=== PATIENT | male | born 1965 | race Caucasian/White ===

== ENCOUNTER 2016-07-28 13:24 | Inpatient (IN) | payer OTHER ==
[2016-07-28 15:36] VITALS: BMI 31.3
--- NOTE | 2016-07-28 15:59 | HP ---
COWS - Scale Resting Pulse: 1= [place] 81-100 Sweatin=Flushed/Facial Moisture Restless Observation: 1= Difficult to Sit Still Pupil Size: 1= Pupils >than Normal Bone or Joint Aches: 2= Severe Diffuse Aches Runny Nose/ Eye Tearin= Runny Nose/Eyes GI Upset > 30mins: 2= Nausea/Diarrhea Tremor Observation: 2= Slight Tremor Visible Yawning Observation: 1= 1-2x During Session Anxiety or Irritability: 1=Feels Anxious/Irritable Goose Flesh Skin: 3=Piloerection COWS Score: 18 Admission ROS S - HPI Chief Complaint: "Need detox from heroine" Allergies/Adverse Reactions: Allergies Allergy/AdvReac Type Severity Reaction Status Date / Time No Known Allergies Allergy Verified 07/28/16 15:34 History of Present Illness: 51 y/o male with 20yrs of heroine use presents for detox. He reports never been in detox or sober. Exam Limitations: No Limitations - Ebola screening Have you traveled outside of the country in the last 21 days: No Have you had contact with anyone from an Ebola affected area: No Have you been sick,other than usual withdrawal symptoms: No Do you have a fever: No - Review of Systems Constitutional: Chills EENT: reports: Nose Congestion Respiratory: reports: Cough (occasional smoker's cough) Cardiac: reports: No Symptoms Reported GI: reports: Abdominal cramping : reports: No Symptoms Reported Musculoskeletal: reports: Back Pain, Muscle Pain Integumentary: reports: No Symptoms Reported Neuro: reports: No Symptoms reported Endocrine: reports: No Symptoms Reported Hematology: reports: No Symptoms Reported Psychiatric: reports: No Sypmtoms Reported Other Systems: Reviewed and Negative Patient History - Patient Medical History Hx Asthma: No Hx Chronic Obstructive Pulmonary Disease (COPD): No Hx Cancer: No Hx Cardiac Disorders: No Hx Congestive Heart Failure: No Hx Hypertension: Yes Hx Hypercholesterolemia: Yes Hx Pacemaker: No HX Cerebrovascular Accident: Yes (10 yrs ago) Hx Seizures: No Hx Dementia: No Hx Diabetes: Yes Hx Gastrointestinal Disorders: No Hx Liver Disease: No Hx Genitourinary Disorders: No Hx Sexually Transmitted Disorders: No Hx Renal Disease (ESRD): No Hx Thyroid Disease: No Hx Human Immunodeficiency Virus (HIV): No Hx Hepatitis C: No Hx Depression: No Hx Suicide Attempt: No Hx Bipolar Disorder: No Hx Schizophrenia: No Other Medical History: Anxiety - Patient Surgical History Past Surgical History: Yes Hx Neurologic Surgery: No Hx Cataract Extraction: No Hx Cardiac Surgery: No Hx Lung Surgery: No Hx Breast Surgery: No Hx Breast Biopsy: No Hx Abdominal Surgery: No Hx Appendectomy: No Hx Cholecystectomy: No Hx Genitourinary Surgery: No Hx Section: No Hx Orthopedic Surgery: No Other Surgical History: By pass Anesthesia Reaction: No - PPD History Previous Implant?: Yes Documented Results: Negative w/o proof Implanted On Prior R Admission?: No PPD to be Administered?: Yes - Smoking Cessation Smoking history: Current every day smoker Have you smoked in the past 12 months: Yes Aproximately how many cigarettes per day: 40 Hx Chewing Tobacco Use: No Initiated information on smoking cessation: Yes 'Breaking Loose' booklet given: 07/28/16 - Substances Abused Heroin Route: Inhalation Frequency: Daily Amount used: 30 bags Age of first use: 31 Date of Last Use: 07/28/16 Family Disease History - Family Disease History Family Disease History: Diabetes: Mother, Heart Disease: Father Admission Physical Exam [facility] - Vital Signs Vital Signs: Vital Signs - 24 hr 07/28/16 14:02 Temperature 97.5 F L Pulse Rate 97 H Respiratory 20 Rate Blood Pressure 164/86 - Physical General Appearance: Yes: No Apparent Distress HEENTM: Yes: EOMI, Normal ENT Inspection, Normocephalic, Normal Voice Respiratory: Yes: Chest Non-Tender, Lungs Clear, No Respiratory Distress, No Accessory Muscle Use Neck: Yes: No masses,lesions,Nodules, Supple Breast: Yes: Breast Exam Deferred Cardiology: Yes: Regular Rhythm, Regular Rate, S1, S2 Abdominal: Yes: Normal Bowel Sounds, Non Tender, Soft, Surgical Scar Genitourinary: Yes: Within Normal Limits Back: Yes: Normal Inspection Musculoskeletal: Yes: full range of Motion, Gait Steady, Pelvis Stable Extremities: Yes: Normal Inspection, Non-Tender, Tremors Neurological: Yes: registered nurse maternal child II-XII NML intact, Fully Oriented, Alert, Normal Mood/ Affect, Normal Response Integumentary: Yes: Normal Color, Clammy Lymphatic: Yes: Within Normal Limits - Diagnostic (1) Opioid dependence with withdrawal Current Visit: Yes Status: Acute (2) Nicotine dependence Current Visit: Yes Status: Acute Qualifiers: Nicotine product type: cigarettes Substance use status: uncomplicated Qualified Code(s): F17.210 - Nicotine dependence, cigarettes, uncomplicated (3) Hypertension Current Visit: Yes Status: Acute Qualifiers: Hypertension type: essential hypertension Qualified Code(s): I10 - Essential (primary) hypertension (4) Diabetes mellitus Current Visit: Yes Status: Acute Qualifiers: Diabetes mellitus type: type 2 Diabetes mellitus complication detail: with unspecified neuropathy Diabetes mellitus alf insulin use: with alf use (5) Peripheral vascular disease Current Visit: Yes Status: Chronic Cleared for Admission [facility] - Detox or Rehab [facility] Level of Care: Medically Managed Detox Regimen/Protocol: Methadone [facility] Breath Alcohol Content Breath Alcohol Content: 0 Urine Drug Screen - Results Drug Screen Negative: No Urine Drug Screen Results: OPI-Opiates, TCA-Tricyclic Antidepress, OXY-Oxycodone
[2016-07-28] MEDS ORDERED: guaiFENesin/D-METHORPHAN HB 10 ML UNIT-DOSE CUPS PO PRN (16:10)
[2016-07-28] MEDS ORDERED: hydrOXYzine PAMOATE 50 MG CAPSULE (FP) PO PRN (16:10)
[2016-07-28] MEDS ORDERED: IBUPROFEN 400 MG TABLET (FP) PO PRN (16:10)
[2016-07-28] MEDS ORDERED: MAG HYDROX/AL HYDROX/SIMETH 30 ML UNIT-DOSE CUP PO PRN (16:10)
[2016-07-28] MEDS ORDERED: METHADONE HCL 10 MG TABLET (FOR DETOX USE ONLY) PO ONE ×2 (16:10→23:00)
[2016-07-28] MEDS ORDERED: MAGNESIUM CITRATE 300 ML BOTTLE PO PRN (16:10)
[2016-07-28] MEDS ORDERED: ACETAMINOPHEN 325 MG TABLET (FP) PO PRN (16:10)
[2016-07-28] MEDS ORDERED: NICOTINE POLACRILEX 2 MG GUM BC PRN (16:10)
[2016-07-28] MEDS ORDERED: P-EPHED 60MG/TRIPROLIDI 2.5MG TABLET PO PRN (16:10)
[2016-07-28] MEDS ORDERED: MENTHOL/PHENOL 1 EACH UD MM PRN (16:10)
[2016-07-28] MEDS ORDERED: MAGNESIUM HYDROX 2400MG/30ML ORAL SUSPENSION 30 ML CUP PO PRN (16:10)
[2016-07-28] MEDS ORDERED: LOPERAMIDE HCL 2 MG CAPSULE PO PRN (16:10)
[2016-07-28] MEDS: diazePAM 5 MG TABLET PO PRN (18:11)
[2016-07-28] MEDS: ASPIRIN 81 MG CHEWABLE TABLETS PO SCH (18:11)
[2016-07-28] MEDS: metFORMIN HCL 500 MG TABLET (FP) PO SCH (18:11)
[2016-07-28] MEDS ORDERED: INSULIN (NOVOLOG) ASPART 100 UNITS/ML 10ML VIAL ONE ×2 (18:12→21:43)
[2016-07-28] MEDS: NICOTINE 21 MG/24 HOURS TOPICAL PATCH TD SCH (18:15)
[2016-07-28] MEDS: INSULIN SLIDING SCALE (NOVOLOG) 1 VIAL SQ SCH ×2 (18:16→22:18)
[2016-07-28] MEDS ORDERED: PREGABALIN 25 MG CAPSULE PO SCH (22:00)
[2016-07-28] MEDS: GABAPENTIN 300 MG CAPSULE (FP) PO SCH (22:18)
[2016-07-28] MEDS: THIAMINE HCL 100 MG TABLET (FP) PO SCH (22:19)
[2016-07-28] MEDS: INSULIN DETEMIR 100 UNITS/ML MDV SQ SCH (22:19)
[2016-07-28] MEDS: diphenhydrAMINE HCL 50 MG CAPSULE PO PRN (22:19)
[2016-07-29] MEDS: GABAPENTIN 300 MG CAPSULE (FP) PO SCH ×3 (05:43→22:13)
[2016-07-29] MEDS: diazePAM 5 MG TABLET PO PRN ×2 (05:43→10:26)
[2016-07-29] MEDS: metFORMIN HCL 500 MG TABLET (FP) PO SCH ×2 (07:16→16:30)
[2016-07-29] MEDS ORDERED: INSULIN (NOVOLOG) ASPART 100 UNITS/ML 10ML VIAL ONE ×4 (07:26→21:07)
[2016-07-29] MEDS: INSULIN SLIDING SCALE (NOVOLOG) 1 VIAL SQ SCH ×4 (07:29→22:16)
[2016-07-29 09:58] LABS: MCH 31.6 pg (25.7-33.7); MCHC 33.5 g/dl (32.0-35.9); MEAN CELL VOLUME 94.2 fl (80-96); MEAN PLT VOLUME 8.4 fl (7.5-11.1); PLATELET COUNT 301 K/MM3 (134-434); RDW 13.1 % (11.9-15.9); WHITE BLOOD COUNT 10.1 K/mm3 (4.0-10.0)
[2016-07-29] MEDS ORDERED: METHADONE HCL 10 MG TABLET (FOR DETOX USE ONLY) PO ONE (10:00)
[2016-07-29 10:13] LABS: ALK PHOS 113 U/L (45-117); ANION GAP 9 (8-16); BILIRUBIN,TOTAL 0.6 mg/dL (0.2-1.0); CALCIUM 8.7 mg/dL (8.5-10.1); CO2 28 mmol/L (21-32); COCKROFT - GAULT 157.13; CREATININE 0.7 mg/dL (0.7-1.3); GLUCOSE,RANDOM 148 mg/dL (74-106); SGOT/AST 10 U/L (15-37); SGPT/ALT 19 U/L (12-78); TOT PROT 6.5 g/dl (6.4-8.2)
[2016-07-29] MEDS: ASPIRIN 81 MG CHEWABLE TABLETS PO SCH (10:26)
[2016-07-29] MEDS: PRENATAL VITAMINS W/ FOLIC ACID TABLET (FP) PO SCH (10:26)
[2016-07-29] MEDS: LISINOPRIL 20 MG TABLET (FP) PO SCH (10:26)
[2016-07-29] MEDS: NICOTINE 21 MG/24 HOURS TOPICAL PATCH TD SCH (10:27)
--- NOTE | 2016-07-29 15:10 | PN ---
BHS COWS - Scale Resting Pulse: 1= [place] 81-100 Sweatin= Chills/Flushing Restless Observation: 3= Extraneous Movement Pupil Size: 0= Normal to Room Light Bone or Joint Aches: 2= Severe Diffuse Aches Runny Nose/ Eye Tearin= Nasal Congestion GI Upset > 30mins: 2= Nausea/Diarrhea Tremor Observation of Outstretched Hands: 2= Slight Tremor Visible Yawning Observation: 1= 1-2x During Session Anxiety or Irritability: 2=Irritable/Anxious Goose Flesh Skin: 0=Smooth Skin COWS Score: 15 BHS Progress Note (SOAP) Subjective: Anxious, sweating, nausea, tremor, interrupted sleep Objective: 07/29/16 15:08 Last Vital Signs Temp Pulse Resp BP Pulse Ox 98 F 95 H 20 148/88 07/29/16 13:37 07/29/16 13:37 07/29/16 13:37 07/29/16 13:37 Laboratory Tests 07/28/16 07/29/16 07/29/16 18:09 05:41 08:00 WBC 10.1 H RBC 3.94 L Hgb 12.4 Hct 37.1 MCV 94.2 MCHC 33.5 RDW 13.1 Plt Count 301 MPV 8.4 Sodium Potassium Chloride Carbon Dioxide Anion Gap BUN Creatinine Creat Clearance w eGFR POC Glucometer 243 172 Random Glucose Calcium Total Bilirubin AST ALT Alkaline Phosphatase Total Protein Albumin RPR Titer 07/29/16 07/29/16 07/29/16 08:00 08:00 11:01 WBC RBC Hgb Hct MCV MCHC RDW Plt Count MPV Sodium 139 Potassium 4.1 Chloride 102 Carbon Dioxide 28 Anion Gap 9 BUN 12 Creatinine 0.7 Creat Clearance w eGFR > 60 POC Glucometer 181 Random Glucose 148 H Calcium 8.7 Total Bilirubin 0.6 AST 10 L ALT 19 Alkaline Phosphatase 113 Total Protein 6.5 Albumin 3.0 L RPR Titer Nonreactive Labs noted: FS 181, serum glucose 148 Assessment: 07/29/16 15:09 Withdrawal symptoms Noted with hyperglycemia Plan: Continue detox Hyperglycemia secondary to DMT2: continue present regimen, encouraged diabetic diet, continue to monitor
[2016-07-29 18:17] LABS: URINE APPEARANCE CLEAR; URINE BILIRUBIN NEGATIVE (NEGATIVE); URINE BLOOD NEGATIVE (NEGATIVE); URINE COLOR YELLOW; URINE GLUCOSE (UA) 3+ (NEGATIVE); URINE KETONE TRACE (NEGATIVE); URINE LEUK ESTERASE NEGATIVE (NEGATIVE); URINE NITRITE NEGATIVE (NEGATIVE); URINE PROTEIN NEGATIVE (NEGATIVE); URINE UROBILINOGEN NEGATIVE E.U./dl (0.2-1.0)
[2016-07-29] MEDS: THIAMINE HCL 100 MG TABLET (FP) PO SCH (22:13)
[2016-07-29] MEDS: INSULIN DETEMIR 100 UNITS/ML MDV SQ SCH (22:16)
[2016-07-30] MEDS: diazePAM 5 MG TABLET PO PRN ×4 (05:42→22:21)
[2016-07-30] MEDS: GABAPENTIN 300 MG CAPSULE (FP) PO SCH ×3 (05:43→22:19)
[2016-07-30] MEDS: metFORMIN HCL 500 MG TABLET (FP) PO SCH ×2 (06:24→16:48)
[2016-07-30] MEDS ORDERED: INSULIN (NOVOLOG) ASPART 100 UNITS/ML 10ML VIAL ONE ×3 (06:43→21:47)
[2016-07-30] MEDS: INSULIN SLIDING SCALE (NOVOLOG) 1 VIAL SQ SCH ×4 (06:44→22:19)
--- NOTE | 2016-07-30 09:10 | EKG ---
Test Reason : Blood Pressure : / mmHG Vent. Rate : 101 BPM Atrial Rate : 101 BPM P-R Int : 186 ms QRS Dur : 086 ms QT Int : 346 ms P-R-T Axes : 067 046 056 degrees QTc Int : 448 ms SINUS TACHYCARDIA POSSIBLE LEFT ATRIAL ENLARGEMENT BORDERLINE ECG NO PREVIOUS ECGS AVAILABLE Confirmed by YARIEL SMITH, JV ([id number]) on 07/30/2016 9:10:09 AM Referred By: Confirmed By:JV SALDIVAR MD
[2016-07-30] MEDS ORDERED: METHADONE HCL 5 MG TABLET (FOR DETOX USE ONLY) PO ONE (10:00)
[2016-07-30] MEDS: LISINOPRIL 20 MG TABLET (FP) PO SCH (10:07)
[2016-07-30] MEDS: PRENATAL VITAMINS W/ FOLIC ACID TABLET (FP) PO SCH (10:08)
[2016-07-30] MEDS: ASPIRIN 81 MG CHEWABLE TABLETS PO SCH (10:08)
[2016-07-30] MEDS: NICOTINE 21 MG/24 HOURS TOPICAL PATCH TD SCH (10:08)
[2016-07-30] MEDS ORDERED: PREGABALIN 25 MG CAPSULE PO SCH (14:00)
--- NOTE | 2016-07-30 15:07 | PN ---
BHS COWS - Scale Resting Pulse: 1= [place] 81-100 Sweatin=Flushed/Facial Moisture Restless Observation: 1= Difficult to Sit Still Pupil Size: 0= Normal to Room Light Bone or Joint Aches: 2= Severe Diffuse Aches Runny Nose/ Eye Tearin= Runny Nose/Eyes GI Upset > 30mins: 2= Nausea/Diarrhea Tremor Observation of Outstretched Hands: 2= Slight Tremor Visible Yawning Observation: 1= 1-2x During Session Anxiety or Irritability: 2=Irritable/Anxious Goose Flesh Skin: 0=Smooth Skin COWS Score: 15 BHS Progress Note (SOAP) Subjective: Sweating,anxiety,tremors,interrupted sleep,restless. Objective: 07/30/16 15:06 Vital Signs - 8 hr 07/30/16 07/30/16 11:11 13:21 Temperature 98.2 F 96.7 F L Pulse Rate 98 H 79 Respiratory 18 18 Rate Blood Pressure 157/92 111/53 Laboratory Last Values WBC 10.1 K/mm3 (4.0-10.0) H 07/29/16 08:00 RBC 3.94 M/mm3 (4.00-5.60) L 07/29/16 08:00 Hgb 12.4 GM/dL (11.7-16.9) 07/29/16 08:00 Hct 37.1 % (35.4-49) 07/29/16 08:00 MCV 94.2 fl (80-96) 07/29/16 08:00 MCHC 33.5 g/dl (32.0-35.9) 07/29/16 08:00 RDW 13.1 % (11.9-15.9) 07/29/16 08:00 Plt Count 301 K/MM3 (134-434) 07/29/16 08:00 MPV 8.4 fl (7.5-11.1) 07/29/16 08:00 Sodium 139 mmol/L (136-145) 07/29/16 08:00 Potassium 4.1 mmol/L (3.5-5.1) 07/29/16 08:00 Chloride 102 mmol/L (98-107) 07/29/16 08:00 Carbon Dioxide 28 mmol/L (21-32) 07/29/16 08:00 Anion Gap 9 (8-16) 07/29/16 08:00 BUN 12 mg/dL (7-18) 07/29/16 08:00 Creatinine 0.7 mg/dL (0.7-1.3) 07/29/16 08:00 Creat Clearance w eGFR > 60 (>60) 07/29/16 08:00 POC Glucometer 160 UNITS (()) 07/30/16 11:40 Random Glucose 148 mg/dL (74-106) H 07/29/16 08:00 Calcium 8.7 mg/dL (8.5-10.1) 07/29/16 08:00 Total Bilirubin 0.6 mg/dL (0.2-1.0) 07/29/16 08:00 AST 10 U/L (15-37) L 07/29/16 08:00 ALT 19 U/L (12-78) 07/29/16 08:00 Alkaline Phosphatase 113 U/L (45-117) 07/29/16 08:00 Total Protein 6.5 g/dl (6.4-8.2) 07/29/16 08:00 Albumin 3.0 g/dl (3.4-5.0) L 07/29/16 08:00 Urine Color Yellow 07/29/16 18:00 Urine Appearance Clear 07/29/16 18:00 Urine pH 5.0 (5.0-8.0) 07/29/16 18:00 Ur Specific [place] 1.025 (1.005-1.025) 07/29/16 18:00 Urine Protein Negative (NEGATIVE) 07/29/16 18:00 Urine Glucose (UA) 3+ (NEGATIVE) H 07/29/16 18:00 Urine Ketones Trace (NEGATIVE) H 07/29/16 18:00 Urine Blood Negative (NEGATIVE) 07/29/16 18:00 Urine Nitrite Negative (NEGATIVE) 07/29/16 18:00 Urine Bilirubin Negative (NEGATIVE) 07/29/16 18:00 Urine Urobilinogen Negative E.U./dl (0.2-1.0) 07/29/16 18:00 Ur Leukocyte Esterase Negative (NEGATIVE) 07/29/16 18:00 RPR Titer Nonreactive (NONREACTIVE) 07/29/16 08:00 labs noted Assessment: 07/30/16 15:06 Withdrawal sx. Plan: Continue detox
[2016-07-30] MEDS: THIAMINE HCL 100 MG TABLET (FP) PO SCH (22:17)
[2016-07-30] MEDS: INSULIN DETEMIR 100 UNITS/ML MDV SQ SCH (22:18)
[2016-07-30] MEDS: diphenhydrAMINE HCL 50 MG CAPSULE PO PRN (22:20)
[2016-07-31] MEDS: GABAPENTIN 300 MG CAPSULE (FP) PO SCH ×3 (05:53→22:12)
[2016-07-31] MEDS: diazePAM 5 MG TABLET PO PRN ×2 (05:55→10:08)
[2016-07-31] MEDS: INSULIN SLIDING SCALE (NOVOLOG) 1 VIAL SQ SCH ×4 (06:32→22:13)
[2016-07-31] MEDS: metFORMIN HCL 500 MG TABLET (FP) PO SCH ×2 (06:32→16:59)
[2016-07-31] MEDS ORDERED: METHADONE HCL 5 MG TABLET (FOR DETOX USE ONLY) PO ONE (10:00)
[2016-07-31] MEDS: PRENATAL VITAMINS W/ FOLIC ACID TABLET (FP) PO SCH (10:08)
[2016-07-31] MEDS: LISINOPRIL 20 MG TABLET (FP) PO SCH (10:08)
[2016-07-31] MEDS: NICOTINE 21 MG/24 HOURS TOPICAL PATCH TD SCH (10:08)
[2016-07-31] MEDS: ASPIRIN 81 MG CHEWABLE TABLETS PO SCH (10:08)
--- NOTE | 2016-07-31 10:31 | PN ---
BHS Progress Note (SOAP) Subjective: ANXIETY,SWEATS,BODY ACHES, INTERMITTENT SLEEP. Objective: 07/31/16 10:30 Vital Signs Temperature 96.6 F L 07/31/16 10:15 Pulse Rate 105 H 07/31/16 10:15 Respiratory Rate 181 H 07/31/16 10:15 Blood Pressure 142/90 07/31/16 10:15 O2 Sat by Pulse Oximetry (%) Laboratory Last Values WBC 10.1 K/mm3 (4.0-10.0) H 07/29/16 08:00 RBC 3.94 M/mm3 (4.00-5.60) L 07/29/16 08:00 Hgb 12.4 GM/dL (11.7-16.9) 07/29/16 08:00 Hct 37.1 % (35.4-49) 07/29/16 08:00 MCV 94.2 fl (80-96) 07/29/16 08:00 MCHC 33.5 g/dl (32.0-35.9) 07/29/16 08:00 RDW 13.1 % (11.9-15.9) 07/29/16 08:00 Plt Count 301 K/MM3 (134-434) 07/29/16 08:00 MPV 8.4 fl (7.5-11.1) 07/29/16 08:00 Sodium 139 mmol/L (136-145) 07/29/16 08:00 Potassium 4.1 mmol/L (3.5-5.1) 07/29/16 08:00 Chloride 102 mmol/L (98-107) 07/29/16 08:00 Carbon Dioxide 28 mmol/L (21-32) 07/29/16 08:00 Anion Gap 9 (8-16) 07/29/16 08:00 BUN 12 mg/dL (7-18) 07/29/16 08:00 Creatinine 0.7 mg/dL (0.7-1.3) 07/29/16 08:00 Creat Clearance w eGFR > 60 (>60) 07/29/16 08:00 POC Glucometer 134 UNITS (()) 07/31/16 05:52 Random Glucose 148 mg/dL (74-106) H 07/29/16 08:00 Calcium 8.7 mg/dL (8.5-10.1) 07/29/16 08:00 Total Bilirubin 0.6 mg/dL (0.2-1.0) 07/29/16 08:00 AST 10 U/L (15-37) L 07/29/16 08:00 ALT 19 U/L (12-78) 07/29/16 08:00 Alkaline Phosphatase 113 U/L (45-117) 07/29/16 08:00 Total Protein 6.5 g/dl (6.4-8.2) 07/29/16 08:00 Albumin 3.0 g/dl (3.4-5.0) L 07/29/16 08:00 Urine Color Yellow 07/29/16 18:00 Urine Appearance Clear 07/29/16 18:00 Urine pH 5.0 (5.0-8.0) 07/29/16 18:00 Ur Specific [place] 1.025 (1.005-1.025) 07/29/16 18:00 Urine Protein Negative (NEGATIVE) 07/29/16 18:00 Urine Glucose (UA) 3+ (NEGATIVE) H 07/29/16 18:00 Urine Ketones Trace (NEGATIVE) H 07/29/16 18:00 Urine Blood Negative (NEGATIVE) 07/29/16 18:00 Urine Nitrite Negative (NEGATIVE) 07/29/16 18:00 Urine Bilirubin Negative (NEGATIVE) 07/29/16 18:00 Urine Urobilinogen Negative E.U./dl (0.2-1.0) 07/29/16 18:00 Ur Leukocyte Esterase Negative (NEGATIVE) 07/29/16 18:00 RPR Titer Nonreactive (NONREACTIVE) 07/29/16 08:00 Assessment: 07/31/16 10:30 WITHDRAWAL SX Plan: CONTINUE DETOX
[2016-07-31] MEDS ORDERED: INSULIN (NOVOLOG) ASPART 100 UNITS/ML 10ML VIAL ONE ×2 (11:12→16:51)
[2016-07-31] MEDS: cloNIDine HCL 0.1 MG TABLET PO PRN (22:13)
[2016-07-31] MEDS: THIAMINE HCL 100 MG TABLET (FP) PO SCH (22:13)
[2016-07-31] MEDS: INSULIN DETEMIR 100 UNITS/ML MDV SQ SCH (22:13)
[2016-07-31] MEDS: diphenhydrAMINE HCL 50 MG CAPSULE PO PRN (22:14)
[2016-08-01] MEDS: GABAPENTIN 300 MG CAPSULE (FP) PO SCH ×3 (05:38→22:06)
[2016-08-01] MEDS: metFORMIN HCL 500 MG TABLET (FP) PO SCH ×2 (06:39→17:28)
[2016-08-01] MEDS ORDERED: INSULIN (NOVOLOG) ASPART 100 UNITS/ML 10ML VIAL ONE ×3 (06:50→21:41)
[2016-08-01] MEDS: INSULIN SLIDING SCALE (NOVOLOG) 1 VIAL SQ SCH ×4 (07:00→22:09)
[2016-08-01] MEDS ORDERED: METHADONE HCL 10 MG TABLET (FOR DETOX USE ONLY) PO ONE (10:00)
[2016-08-01] MEDS: cloNIDine HCL 0.1 MG TABLET PO PRN (10:10)
[2016-08-01] MEDS: PRENATAL VITAMINS W/ FOLIC ACID TABLET (FP) PO SCH (10:10)
[2016-08-01] MEDS: NICOTINE 21 MG/24 HOURS TOPICAL PATCH TD SCH (10:10)
[2016-08-01] MEDS: ASPIRIN 81 MG CHEWABLE TABLETS PO SCH (10:10)
[2016-08-01] MEDS: LISINOPRIL 20 MG TABLET (FP) PO SCH (10:10)
--- NOTE | 2016-08-01 11:08 | PN ---
BHS Progress Note (SOAP) Subjective: DECREASE ANXIETY,SWEATS. ALERT O X 3.NAD. Objective: 08/01/16 11:08 Vital Signs Temperature 96.1 F L 08/01/16 09:45 Pulse Rate 98 H 08/01/16 09:45 Respiratory Rate 20 08/01/16 09:45 Blood Pressure 157/87 08/01/16 09:45 O2 Sat by Pulse Oximetry (%) Assessment: 08/01/16 11:08 WITHDRAWAL SX Plan: CONTINUE DETOX
[2016-08-01] MEDS: THIAMINE HCL 100 MG TABLET (FP) PO SCH (22:06)
[2016-08-01] MEDS: diphenhydrAMINE HCL 50 MG CAPSULE PO PRN (22:07)
[2016-08-01] MEDS: INSULIN DETEMIR 100 UNITS/ML MDV SQ SCH (22:09)
[2016-08-02] MEDS ORDERED: METHADONE HCL 5 MG TABLET (FOR DETOX USE ONLY) PO ONE (06:00)
[2016-08-02] MEDS: metFORMIN HCL 500 MG TABLET (FP) PO SCH (06:37)
[2016-08-02] MEDS: GABAPENTIN 300 MG CAPSULE (FP) PO SCH (06:38)
[2016-08-02] MEDS: INSULIN SLIDING SCALE (NOVOLOG) 1 VIAL SQ SCH (06:39)
[2016-08-02] MEDS ORDERED: INSULIN (NOVOLOG) ASPART 100 UNITS/ML 10ML VIAL ONE (06:47)
[2016-08-02 06:52] VITALS: PULSE 90
--- NOTE | 2016-08-02 08:54 | DS ---
[facility] Detox Discharge Summary Admission Date: 07/28/16 Discharge Date: 08/02/16 - History Present History: Opioid Dependence Additional Comments: DETOX COMPLETED.ALERT O X 3. NAD. PT INSTRUCTED TO F/ALY PMD AT [facility] Pertinent Past History: HTN S/P CVA TYPE 2 DM PERIPHERAL VASCULAR DISEASE - Physical Exam Results Vital Signs: Vital Signs Temperature 97.0 F L 08/02/16 06:52 Pulse Rate 90 08/02/16 06:52 Respiratory Rate 18 08/02/16 06:52 Blood Pressure 141/90 08/02/16 06:52 O2 Sat by Pulse Oximetry (%) Pertinent Admission Physical Exam Findings: WITHDRAWAL SX - Treatment Hospital Course: Detox Protocol Followed, Detoxed Safely, Responded well, Discharged Condition Good - Medication Discharge Medications: Ambulatory Orders Aspirin [ASA -] 81 mg PO DAILY 07/28/16 Gabapentin [Neurontin -] 300 mg PO TID 07/28/16 Insulin Glargine,Hum.rec.anlog [Lantus Solostar PEN -] 25 units SQ HS 07/28/16 Lisinopril [Prinivil -] 20 mg PO DAILY 07/28/16 Pregabalin [Lyrica -] 25 mg PO BID 07/28/16 - Diagnosis (1) Diabetes mellitus Status: Chronic Qualifiers: Diabetes mellitus type: type 2 Diabetes mellitus complication detail: with unspecified neuropathy 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
[2016-08-02] MEDS: ASPIRIN 81 MG CHEWABLE TABLETS PO SCH (09:04)
[2016-08-02] MEDS: LISINOPRIL 20 MG TABLET (FP) PO SCH (09:04)
[2016-08-02] MEDS: PRENATAL VITAMINS W/ FOLIC ACID TABLET (FP) PO SCH (09:05)
[2016-08-02 09:28] VITALS: BP 154/87; TEMP 96.7
== END 2016-08-02 09:17 | disposition home or self-care (01) | DRG 773 ==
LOC: YASAS 13:24 → Y3N 15:10
PROVIDERS: ADMIT Internal Medicine; ATTEND Internal Medicine
PROC: HZ2ZZZZ Detoxification Services for Substance Abuse Treatment (ICD-10-PCS; principal; 2016-07-28)
DX: F11.23 Opioid dependence with withdrawal (principal); F17.213 Nicotine dependence, cigarettes, with withdrawal; E08.40 Diabetes mellitus due to underlying condition with diabetic neuropathy, unspecified; I10 Essential (primary) hypertension; I73.9 Peripheral vascular disease, unspecified; Z86.73 Personal history of transient ischemic attack (TIA), and cerebral infarction without residual deficits
CPT/HCPCS: 36415; 80053; 81003; 85027; 86593; 93005; 93010